=== PATIENT | male | born 1960 | race Caucasian/White ===

== ENCOUNTER 2021-12-03 06:01 | Day surgery (SDC) | payer MEDICARE ==
[2021-11-26 10:38] LABS: BASOPHILS % (AUTO) 0.6 % (0-1); EOSINOPHILS % (AUTO) 0.5 % (0-6); HEMATOCRIT 42.5 % (42.0-52.0); HEMOGLOBIN 14.6 g/dl (14.0-17.9); LYMPHOCYTES # (AUTO) 1.6 X10'3 (1.1-4.8); LYMPHOCYTES % (AUTO) 19.6 % (21-51); MEAN CORPUSCULAR HEMOGLOBIN 31.4 PG (27.0-31.0); MEAN CORPUSCULAR HGB CONC 34.4 g/dL (33.0-36.5); MEAN CORPUSCULAR VOLUME 91.4 FL (78-98); MEAN PLATELET VOLUME 6.9 FL (7.4-10.4); MONOCYTES # (AUTO) 0.6 X10'3 (0-0.9); MONOCYTES % (AUTO) 7.2 % (2-12); NEUTROPHILS # (AUTO) 5.9 X10'3 (1.8-7.7); NEUTROPHILS % (AUTO) 72.1 % (42-75); PLATELET COUNT 337 X10'3 (140-440); RED BLOOD COUNT 4.65 X10'6 (4.70-6.10); RED CELL DISTRIBUTION WIDTH 13.5 % (11.5-14.5); WHITE BLOOD COUNT 8.2 X10'3 (4.5-11.0)
[2021-11-26 10:48] LABS: APTT 23 SECONDS (22-32)
[2021-11-26 10:50] LABS: ALANINE AMINOTRANSFERASE 16 U/L (12-78); ALBUMIN/GLOBULIN RATIO 1.3 (1.1-1.5); ALKALINE PHOSPHATASE 61 IU/L (46-116); ANION GAP 10 (8-16); ASPARTATE AMINO TRANSFERASE 15 U/L (10-37); BILIRUBIN,TOTAL 0.4 MG/DL (0.1-1.0); BLOOD UREA NITROGEN 16 MG/DL (7-18); BUN/CREATININE RATIO 16.8 (5.4-32.0); CALCIUM 8.8 MG/DL (8.5-10.1); CHLORIDE 109 MMOL/L (99-107); CREATININE 0.95 MG/DL (0.60-1.10); GLUCOSE 122 MG/DL (70-104); POTASSIUM 3.6 MMOL/L (3.5-5.1); SODIUM 148 MMOL/L (135-145); TOTAL CARBON DIOXIDE 28.8 MMOL/L (24-32); TOTAL PROTEIN 7.2 G/DL (6.4-8.2); eGFR 81 ML/MIN
[~2021-12-03] VITALS: Ht 167.6 cm; Wt 72.8 kg
[2021-12-03] VITALS (15 sets, daily range): BP systolic 99–127; BP diastolic 62–81
[~2021-12-03 06:01] MED LIST: ATOR10TA87 PO; CARI350T PO; ESCI20TA29 PO; HYDR-4383 PO; LOP25T PO; NOR5T PO; ONDA4TAB6 PO; PAT0.1OS OP; SYN0.1T PO
[2021-12-03] MEDS ORDERED: nitroGLYCERIN 0.4mg SUBLingual tab SL PRN (06:20)
[2021-12-03] MEDS ORDERED: LORazepam 0.5 MG tablet PO PRN (06:20)
[2021-12-03] MEDS ORDERED: diphenhydrAMINE 25mg capsule PO PRN (06:20)
[2021-12-03] MEDS ORDERED: normal saline 1,000 ML IV SCH (06:20)
[2021-12-03] MEDS ORDERED: LEVO100T9 PO (06:39)
[2021-12-03] MEDS ORDERED: DULO30CA52 PO (06:39)
[2021-12-03] MEDS ORDERED: AMLO10TA13 PO (06:39)
[2021-12-03] MEDS ORDERED: PANT40TA54 PO (06:39)
[2021-12-03] MEDS ORDERED: METO-384 PO (06:42)
[2021-12-03] MEDS ORDERED: ATOR10TA87 PO (06:42)
[2021-12-03] MEDS ORDERED: midazolam 1 mg/ML 2ml injection ONE ×2 (07:35→08:24)
[2021-12-03] MEDS ORDERED: iohexol 350MG/ML 100ml bottle IV ONE ×2 (07:36→08:18)
[2021-12-03] MEDS ORDERED: fentaNYL/PF 50MCG/1 ML 2ML syringe ONE (07:36)
[2021-12-03] MEDS ORDERED: LIDOcaine 1% 30ml preserv. free vial ONE (07:36)
[2021-12-03] MEDS ORDERED: ondansetron/PF 4mg/2ml inj IV PRN (09:15)
[2021-12-03] MEDS ORDERED: HYDROcodone/acetaminophen 5mg/325mg tablet PO PRN (09:15)
[2021-12-03] MEDS ORDERED: OXAZEpam 15mg capsule PO PRN (09:15)
[2021-12-03] MEDS ORDERED: HYDROcodone/acetaminophen 10/325mg tab PO PRN (09:15)
[2021-12-03] MEDS ORDERED: normal saline 1000ml 1,000 ML IV SCH (09:15)
== END 2021-12-03 14:40 | disposition home or self-care (01) ==
LOC: SSTAY O 06:01
PROVIDERS: ATTEND Internal Medicine Cardiovascular Disease
DX: R94.39 Abnormal result of other cardiovascular function study (principal); R07.89 Other chest pain; I25.10 Atherosclerotic heart disease of native coronary artery without angina pectoris; I10 Essential (primary) hypertension; E03.9 Hypothyroidism, unspecified; F32.A Depression, unspecified; K21.9 Gastro-esophageal reflux disease without esophagitis; Z90.81 Acquired absence of spleen; Z98.890 Other specified postprocedural states; Z79.899 Other long term (current) drug therapy
CPT/HCPCS: 36415; 71046; 80053; 85025; 85610; 85730; 93005; 93458; 99152; 99153; C1760; C1769; J1644; J2250; J3010; J3490; J7030; Q0163; Q9967; A4620; A6258